=== PATIENT | female | born 1980 | race Caucasian/White ===

== ENCOUNTER 2016-11-16 05:27 | Day surgery (SDC) | payer MEDICAID ==
[2016-11-15 10:27] VITALS: BMI 47.3
[2016-11-15 18:23] LABS: INR 0.91; PROTIME 12.3 Sec (12.2-14.2)
[2016-11-15 18:24] LABS: PARTIAL THROMBOPLASTIN TIME 31.9 Sec (25.0-35.0)
[2016-11-15 18:27] LABS: ALBUMIN 4.1 g/dl (3.3-4.9); ALBUMIN/GLOBULIN RATIO 1.02; BILIRUBIN,INDIRECT 0.2 mg/dl (0-1.1); BILIRUBIN,TOTAL 0.2 mg/dl (0.2-1.3); TOTAL PROTEIN 8.1 g/dl (6.1-8.1)
[2016-11-15 18:29] LABS: CALCIUM 9.5 mg/dl (8.4-10.2); CREATININE 0.67 mg/dl (0.44-1.00); POTASSIUM 4.5 mmol/L (3.5-5.1)
[2016-11-15 18:44] LABS: BASOPHIL # 0.1 10^3/ul (0.0-0.1); BASOPHILS % 0.9 % (0.0-2.0); EOSINOPHILS # 0.3 10^3/ul (0.0-0.5); EOSINOPHILS % 3.5 % (0.0-7.0); HEMATOCRIT 36.1 % (37.0-47.0); HEMOGLOBIN 11.3 g/dl (12.0-16.0); LYMPHOCYTES # 3.9 10^3/ul (0.8-2.9); LYMPHOCYTES % 42.5 % (15.0-51.0); MEAN CORPUSCULAR HEMOGLOBIN 25.4 pg (29.0-33.0); MEAN CORPUSCULAR HGB CONC 31.3 g/dl (32.0-37.0); MEAN CORPUSCULAR VOLUME 81.1 fl (82.0-101.0); MEAN PLATELET VOLUME 9.6 fl (7.4-10.4); MONOCYTE # 0.6 10^3/ul (0.3-0.9); MONOCYTES % 6.7 % (0.0-11.0); NEUTROPHIL # 3.9 10^3/ul (1.6-7.5); NEUTROPHILS % 42.6 % (39.0-77.0); PLATELET COUNT 474 10^3/UL (140-415); RED BLOOD COUNT 4.45 10^6/ul (4.20-5.40); RED CELL DISTRIBUTION WIDTH 13.5 % (11.5-14.5); WHITE BLOOD COUNT 9.2 10^3/ul (4.8-10.8)
[2016-11-15 19:09] LABS: ADD UMIC YES; UR ASCORBIC ACID NEGATIVE (NEGATIVE); UR BACTERIA FEW /HPF (NONE SEEN); UR BILIRUBIN (Dip) NEGATIVE (NEGATIVE); UR BLOOD (Dip) 3+ mg/dL (NEGATIVE); UR CLARITY SLIGHTLY CLOUDY (CLEAR); UR COLOR YELLOW (YELLOW); UR GLUCOSE (Dip) NEGATIVE (NEGATIVE); UR KETONES (Dip) NEGATIVE (NEGATIVE); UR LEUKOCYTE ESTERASE (Dip) 3+ Leu/ul (NEGATIVE); UR NITRITE (Dip) NEGATIVE (NEGATIVE); UR RBC > 182 /HPF (0-5); UR SPECIFIC GRAVITY (Dip) 1.019 (1.003-1.030); UR SQUAMOUS EPITHELIAL CELL FEW /HPF (FEW); UR TOTAL PROTEIN (Dip) NEGATIVE (NEGATIVE); UR UROBILINOGEN (Dip) NEGATIVE (NEGATIVE)
--- NOTE | 2016-11-15 22:13 | PREOPHP ---
DATE OF ADMISSION: 11/16/2016 Patient is to be admitted tomorrow, November 16, 2016 for a laparoscopic bilateral tubal ligation under general anesthesia. HISTORY OF PRESENT ILLNESS: This is a 35-year-old female, 6, para 4, with 4 normal vaginal deliveries, who has requested sterilization on the basis of multiparity. Laparoscopic bilateral tubal ligation was planned for her, and the procedure was explained in detail to the patient. The laparotomy was also explained, given the fact that this patient is morbidly obese. The alternatives, benefits, risks and possible complications of these procedures were discussed in the office at great length, as well as 1 percent failure rate of the tubal ligation. She was allowed to ask questions, and all her questions were answered to her satisfaction. She signed the appropriate surgical informed consent. PAST MEDICAL HISTORY: The patient denies any medical problems, including diabetes, hypertension, cardiac disease, liver disease, renal disease, thyroid disease, or neurological problems. ALLERGIES: SHE HAS NO KNOWN ALLERGIES. MEDICATIONS: She takes no medications on a regular basis. OBSTETRICAL HISTORY: The patient has been 6 times, 4 times to deliver vaginally and 2 spontaneous abortions. FAMILY HISTORY: Noncontributory. REVIEW OF SYSTEMS: A 12-point review of systems is noncontributory. PHYSICAL EXAMINATION: GENERAL APPEARANCE: Well developed, morbidly obese, with a height of 5 feet 4 inches and a weight of 275 pounds. BMI is 47 percent. VITAL SIGNS: Showed temperature to be 98, blood pressure is 117/64, respirations are 16 per minute, pulse is 80 per minute and regular. HEENT: Within normal limits. The pupils are PERRLA. NECK: Supple. The thyroid is not palpable. There is no lymphadenopathy. BREASTS: Show no masses or lumps. Nipples are normal. CHEST: Revealed lungs to be clear to percussion and auscultation. HEART: Revealed normal sinus rhythm, without murmur. ABDOMEN: Soft, very obese. PELVIC: Normal external genitalia. Cervix is normal, without lesions. Bimanual exam is precluded by the size of this patient. EXTREMITIES: Examination of lower extremities within normal limits. NEUROLOGICAL: Also normal. IMPRESSION: 1. Multiparity. The patient desires sterilization. 2. Morbid obesity. PLAN: Surgery for this patient is laparoscopic bilateral tubal ligation. If this proves to be impossible technically, given the size of the patient, then a laparotomy with a bilateral tubal ligation will be done. Dictated By: Parveen Burk MD /lynn/gemma /Document#: [id number]
[2016-11-16] VITALS (9 sets, daily range): BP systolic 122–144; BP diastolic 62–76; PULSE 61–78; RESP 12–64; Ht 162.6 cm; Wt 126.5 kg
[~2016-11-16] VITALS: Ht 162.6 cm; Wt 126.5 kg
[2016-11-16] MEDS ORDERED: LACTATED RINGER'S 1,000 ML IV* SCH (06:00)
[2016-11-16] MEDS ORDERED: BUPIVACAINE 0.5% (SDV) 30 ML INJ ONE (07:02)
[2016-11-16] MEDS ORDERED: OXYCODONE/ACETAMINOPHEN (5/325) TAB PO PRN ×3 (07:30→09:00)
[2016-11-16] MEDS ORDERED: MIDAZOLAM 1 MG/ML 2 ML INJ IV PRN (07:30)
[2016-11-16] MEDS ORDERED: FENTAnyl 50 MCG/ML VIAL IV PRN ×3 (07:30)
[2016-11-16] MEDS ORDERED: MEPERIDINE 25 MG INJ IV PRN (07:30)
[2016-11-16] MEDS ORDERED: METOCLOPRAMIDE 10 MG INJ IV PRN (07:30)
[2016-11-16] MEDS ORDERED: ONDANSETRON 4 MG INJ IV PRN ×2 (07:30→09:00)
[2016-11-16] MEDS ORDERED: EPHEDrine SULFATE 50 MG/5 ML SYG IV PRN (07:30)
[2016-11-16] MEDS ORDERED: DIPHENHYDRAMINE 50 MG INJ IV PRN (07:30)
[2016-11-16] MEDS ORDERED: hydrALAzine 20 MG INJ IV PRN (07:30)
[2016-11-16] MEDS ORDERED: HYDROmorphONE (0.2 MG/ML) 10ML SYG IV PRN ×3 (07:30)
[2016-11-16] MEDS ORDERED: LABETALOL HCL 20MG INJ IV PRN (07:30)
[2016-11-16] MEDS ORDERED: SUCCINYLCHOLINE CHLORIDE 100 MG/5 ML SYG IV ONE (07:35)
[2016-11-16] MEDS ORDERED: PROPOFOL 20 ML ONE (07:35)
[2016-11-16] MEDS ORDERED: GLYCOPYRROLATE 0.4 MG INJ ONE ×3 (07:35→08:47)
[2016-11-16] MEDS ORDERED: NEOSTIGMINE 3 MG/3 ML SYRINGE ONE ×2 (07:35→08:47)
[2016-11-16] MEDS ORDERED: ROCURONIUM 50 MG INJ ONE (07:35)
[2016-11-16] MEDS ORDERED: MEPERIDINE 100 MG INJ ONE (07:35)
[2016-11-16] MEDS ORDERED: LIDOCAINE 2% (SDV) 5 ML INJ ONE (07:35)
[2016-11-16] MEDS ORDERED: METOCLOPRAMIDE 10 MG INJ ONE (08:05)
[2016-11-16] MEDS ORDERED: ONDANSETRON 4 MG INJ ONE (08:05)
[2016-11-16] MEDS ORDERED: CEFAZOLIN 1 GM INJ ONE (08:05)
[2016-11-16] MEDS ORDERED: BUPIVACAINE 0.5%/EPI (SDV) 10 ML INJ ONE (08:16)
[2016-11-16] MEDS ORDERED: LACTATED RINGER'S 1,000 ML IV SCH (08:47)
--- NOTE | 2016-11-16 08:47 | SIPON ---
Date/Time of Note Date/Time of Note DATE: 11/16/16 TIME: 08:44 Laparoscopic BTL under general anesthesia. Operative Report Preoperative Diagnosis Multiparity.Morbid obesity. Postoperative Diagnosis Same. Operation/Procedure Performed Laparoscopic bilateral tubal ligation. Surgeon Dr.Carlos Roman Burk. caregiver assisted living None Anesthesia: general Estimated blood loss: none Transfusion Required none Specimen None Grafts/Implants none Complications none EVELIN BURK MD Nov 16, 2016 08:47
--- NOTE | 2016-11-16 08:52 | PD.PPDC ---
[employer] Discharge Instruction Diagnosis Final Diagnosis: Multiparity.Morbid obesity. Condition Patient Condition: Good Diet Diet: Resume Regular Diet Activity/Restrictions Activity: Normal Activity May Shower Restrictions: No Exercising No Sexual Activity Nothing in the Vagina No Leaf Wound/Drain Care Instructions Wound/Drain Care Instructions: Wash with soap and water Follow-up Follow-up with Physician: 2, Week/Weeks Return to clinic for SENIOR PROGRAMMER Instructions: Fever greater than 101 Worsening abdominal pain Excessive Vaginal Bleeding Unable to tolerate diet Surgical Instructions: Incisional Drainage Incisional Redness (May shower and wash hair daily.Change band aids daily.) EVELIN HERNANDEZ MD Nov 16, 2016 08:52
[2016-11-16] MEDS ORDERED: morphine 2 MG INJ IV PRN (09:00)
[2016-11-16] MEDS ORDERED: IBUPROFEN 600 MG TAB PO PRN (09:00)
[2016-11-16] MEDS ORDERED: ACETAMINOPHEN 325 MG TAB PO PRN (09:00)
--- NOTE | 2016-11-16 09:28 | OPR ---
DATE OF OPERATION: 11/16/2016 PREOPERATIVE DIAGNOSES: 1. Multiparity. 2. Morbid obesity. POSTOPERATIVE DIAGNOSES: 1. Multiparity. 2. Morbid obesity. OPERATION PERFORMED: Laparoscopic bilateral tubal ligation. SURGEON: Dr. Parveen Burk. ANESTHESIA: General by Dr. Leblanc. ESTIMATED BLOOD LOSS: Negligible. SPECIMENS: None. Pictures were taken for documentation. COMPLICATIONS: There were no complications either. OPERATIVE PROCEDURE AND FINDINGS: With the patient under general anesthesia, she was laid on the table in dorsal lithotomy position. Her upper abdomen was prepped with ChloraPrep and her perineum and vagina with Betadine and after 3 minutes, she was then draped in the usual sterile fashion for this procedure. A Medeiros catheter was inserted. A small incision was done to the level of the umbilicus through which the Veress needle was inserted. While the tip of the needle was ascertained to be intraperitoneal by the hanging drop saline technique, it was then connected to the CO2 insufflator. Good pneumoperitoneum was obtained. The needle was removed. A 5 mm trocar was passed while we were tenting up the anterior abdominal wall. Through this port the 5 mm laparoscope with video camera was inserted. The patient was repositioned in the Trendelenburg position by Dr. Leblanc. The pelvic organs looked normal and the 1st picture was taken for documentation. A 2nd port was installed in the midline in the hypogastric area under direct vision with another 5 mm trocar. Through this port now, the Kleppinger clamp was inserted, hooked to the gyrus device and 35 harper of current. The right tube was then picked up in this mid portion burned through and through for a centimeter and a half. The same was done on the contralateral side. There was no bleeding or complications. All instruments were then removed from the patient's abdomen, as well as much CO2 as possible. The incisions were infiltrated with 0.5 percent Marcaine with epinephrine for a total of 20 cc. They were closed with 4-0 Monocryl. Band-Aids were applied. The patient withstood the procedure well. Was taken to recovery room with all vital signs stable. Needle, sponge, and instrument count at the end of the procedure was correct twice. Dictated By: Parveen Burk MD /lynn/dari /Document#: [id number]
== END 2016-11-16 11:42 | disposition home or self-care (01) ==
LOC: SDS 05:27
PROVIDERS: ATTEND Specialist
DX: Z30.2 Encounter for sterilization (principal); E11.9 Type 2 diabetes mellitus without complications; I10 Essential (primary) hypertension; K76.9 Liver disease, unspecified
CPT/HCPCS: 58670; 80053; 81001; 84703; 85025; 85610; 85730; 86850; 86900; 86901; J0690; J2175; J2405; J2710; J2765; Z7512; Z7610; J7999